=== PATIENT | female | born 1980 | race Caucasian/White ===

== ENCOUNTER 2021-11-25 19:31 | Emergency (ER) | payer OTHER, SELFPAY ==
[2021-11-25 19:36] VITALS: BP 127/78; PULSE 103; RESP 18; TEMP 36.8; O2SAT 100
--- NOTE | 2021-11-25 20:11 | ED.SKABFB ---
HPI - Skin/Abscess/Foreign Bdy General Chief complaint: Skin/Abscess/Foreign Body Stated complaint: wasp sting irritation Time Seen by Provider: 11/25/21 20:05 Source: patient Mode of arrival: ambulatory Limitations: no limitations History of Present Illness HPI narrative: 41 year old presents to [facility] with complaints of being stung on her right lateral ankle and also to her left proximal lower leg with tissue red and swollen and itching 2 days ago. Patient reports that she has been applying Neosporin and Cortisone cream to area of redness and swelling around wasp stings. Patient denies any difficulty with her swallowing or any difficulty with her breathing. MD complaint: insect bite/sting Onset (ago): day(s) Location: LLE (lateral proximal upper leg) and R foot (lateral ankle area) Severity scale (1-10): 7 Treatments prior to arrival: other (neosporin,cortissone ointment) Related Data Home Medications Medication Instructions Recorded Confirmed amlodipine 10 mg tablet 10 mg PO DAILY 11/25/21 11/25/21 dextroamphetamine-amphetamine ER 20 mg PO DAILY 11/25/21 11/25/21 20 mg 24hr capsule,extend release (Adderall XR) metoprolol tartrate 25 mg tablet 25 mg PO DAILY 11/25/21 11/25/21 Allergies Allergy/AdvReac Type Severity Reaction Status Date / Time hydromorphone [From Dilaudid] Allergy Hallucinati Verified 11/25/21 19:50 ng Review of Systems Review of Systems: CONSTITUTIONAL: Denies fever, chills, or sweats. EYES: Denies visual changes, redness, or discharge. ENT: Denies rhinorrhea, congestion, sore throat, or otalgia. CARDIOVASCULAR: Denies chest pain, palpitations, or edema. RESPIRATORY: Denies cough or dyspnea. GASTROINTESTINAL: Denies abdominal pain, nausea, vomiting, or diarrhea. GENITOURINARY: Denies dysuria or hematuria. SKIN: Positive redness swelling where received wasp sting with itching. MUSCULOSKELETAL: Denies back pain, joint pain, or myalgia. NEUROLOGIC: Denies headache, numbness, or weakness. PSYCHIATRIC: Denies anxiety or depression. All systems reviewed & are unremarkable except as noted in HPI and below [facility] Past Medical History Medical History (Updated 11/26/21 @ 09:13 by Deja Cosme NP) ADHD (attention deficit hyperactivity disorder) Hypertension Kidney stones Surgical History Surgical History (Updated 11/26/21 @ 09:12 by Deja Cosme NP) History of cholecystectomy History of hysterectomy History of toe surgery bilateral great toe surgery and 5th toe surgery to straighten toes History of tonsillectomy Social History Social History (Updated 11/26/21 @ 09:09 by Deja Cosme NP) Tobacco type: e-cigarettes/vaping Additional smoking assessment comments: smoked cigarettes for 25 years has vaped for past 1.5 years Alcohol intake: current Alcohol use details: social Substance use type: does not use Comments At time of signature, agree with nursing past medical, surgical, social and family history. There is no relevant family history pertinent to the presenting complaint Exam Narrative: GENERAL: Well-appearing, well-nourished, and in no acute distress. HEAD: Normocephalic, atraumatic. EYES: PERRLA and EOMI. ENT: Nares clear, no rhinorrhea or epistaxis. Mucous membranes moist. NECK: Supple. No lymphadenopathy CHEST: Clear to auscultation. No respiratory distress. SaO2 100% on room air HEART: Regular rate and rhythm. No murmur heard. Normal peripheral pulses. ABDOMEN: Soft, nontender, nondistended, normal active bowel sounds. EXTREMITIES: Normal range of motion. No edema. SKIN: Warm, dry, swelling and redness to right lateral ankle where he was stung by wasp no drainage or acute warmth, also swelling and redness to left lateral proximal lower leg from area where wasp sting no acute warmth no drainage no induration of tissue is itching NEURO: No focal deficits. Alert and oriented x3. Course Course Level of Care: Express Care Visit Vital Sign
== END 2021-11-25 20:22 | disposition home or self-care (01) ==
PROVIDERS: Emergency Provider Registered Nurse; PCP Family Medicine
DX: T63.461A Toxic effect of venom of wasps, accidental (unintentional), initial encounter (principal); F90.9 Attention-deficit hyperactivity disorder, unspecified type; I10 Essential (primary) hypertension
CPT/HCPCS: 99213; G0463